=== PATIENT | male | born 1960 | race American Indian/Alaskan Native ===

== ENCOUNTER 2017-01-31 07:13 | Emergency (ER) | payer OTHER ==
[2017-01-31 07:44] VITALS: BP 114/77
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
--- NOTE | 2017-01-31 09:13 | XRay Report ---
ROUTINE CHEST, TWO VIEWS: Chest pain. PA and lateral views demonstrate the heart and mediastinal contour to be of normal size and shape. The lungs are clear and fully expanded and the soft tissues and bony structures are normal. IMPRESSION: Normal study.
[2017-01-31 09:28] LABS: Hematocrit 39.5 % (35.5-45.6); Mean Corpuscular HGB Conc 33 % (32-34); Mean Corpuscular Hemoglobin 30 pg (28-32); Mean Corpuscular Volume 92 fl (84-94); Platelet Count 272 K/mm3 (140-440); White Blood Count 3.9 K/mm3 (4.5-11.0)
[2017-01-31 09:39] LABS: Anion Gap 15 mmol/L; BUN/Creatinine Ratio 19.16; Blood Urea Nitrogen 23 mg/dL (9-20); Calcium 8.7 mg/dL (8.4-10.2); Carbon Dioxide 28 mmol/L (22-30); Chloride 100.4 mmol/L (98-107); Glucose 97 mg/dL (75-100); Potassium 4.1 mmol/L (3.6-5.0); Sodium 139 mmol/L (137-145)
[2017-01-31] MEDS ORDERED: TORADOL IM ONE (10:10)
[2017-01-31 10:35] LABS: Basophils % (Manual) 0 % (0.0-1.8); Blastocytes % (Manual) 0 %; Eosinophils % (Manual) 0 % (0.0-4.3)
[2017-01-31 10:37] LABS: Anisocytosis 1+
[2017-01-31 10:49] LABS: Diff Status Complete
== END 2017-01-31 11:02 | disposition home or self-care (01) ==
LOC: ED 07:13
DX: R51 Headache (principal); R07.9 Chest pain, unspecified; F20.9 Schizophrenia, unspecified; Z87.891 Personal history of nicotine dependence; V43.52XA Car driver injured in collision with other type car in traffic accident, initial encounter; Y93.89 Activity, other specified; Y92.89 Other specified places as the place of occurrence of the external cause; Y99.8 Other external cause status
CPT/HCPCS: 36415; 70450; 71020; 72125; 80048; 84484; 85007; 85025; 93005; 93010; 96372; 99284; J1885